=== PATIENT | male | born 2000 | race Caucasian/White ===

== ENCOUNTER 2023-06-02 20:32 | Emergency (ER) | payer OTHER ==
[2023-06-02] MEDS ORDERED: Metoprolol Tartrate 5 MG (5 mL) VIAL ONE (20:46)
[2023-06-02 20:52] LABS: #Monocytes 0.7 10x3/uL (0.0-1.1); #Neutrophils 4.3 10x3/uL (1.5-8.4); %Basophils 0.4 % (0.0-2.0); %Eosinophils 0.1 % (0.0-6.0); %Lymphocytes 33.4 % (18.0-47.0); %Monocytes 9.1 % (0.0-10.0); %Neutrophils 56.7 % (40.0-75.0); Hematocrit 40.5 % (38.8-50.0); Hemoglobin 14.8 g/dL (13.5-17.5); Mean Corpuscular HGB CONC 36.5 g/dL (32.0-36.0); Mean Corpuscular Hemoglobin 34.2 pg (27.0-33.0); Mean Corpuscular Volume 93.5 fl (81.2-95.1); Mean Platelet Volume 10.3 fl (7.4-10.4); Platelet Count 194 10x3/uL (150-450); RBC Distribution Width 12.5 % (11.5-14.5); Red Blood Cell (RBC) Count 4.33 10x6/uL (4.32-5.72); White Blood Cell (WBC) Count 7.6 10x3/uL (3.5-10.5)
[2023-06-02 21:04] LABS: Acetaminophen Less than 10 mcg/mL (10.0-30.0); Alcohol Less than 10.0 mg/dL (Less than 10); Magnesium 1.4 mg/dL (1.6-2.6); Salicylate Less than 8.0 mg/dL (15.0-30.0)
[2023-06-02 21:05] LABS: ALT (SGPT) 28 U/L (8-55); AST (SGOT) 37 U/L (5-34); Albumin 4.6 g/dL (3.5-5.0); Alkaline Phosphatase 56 U/L (40-110); Anion Gap 14 mmol/L (10-20); BUN (Urea Nitrogen) 13 mg/dL (8.9-20.6); Bilirubin, Total 0.8 mg/dL (0.2-1.2); Calc. Creatinine Clearance 0 mL/min (70-130); Calcium 8.6 mg/dL (7.8-10.44); Carbon Dioxide 21 mmol/L (22-29); Chloride 106 mmol/L (98-107); Estimated GFR 89; Glucose 97 mg/dL (70-105); Protein, Total 6.6 g/dL (6.0-8.3); Sodium 138 mmol/L (136-145)
== END 2023-06-02 21:20 | disposition home or self-care (01) ==
LOC: CSHERS 20:32
DX: R00.0 Tachycardia, unspecified (principal)
CPT/HCPCS: 80053; 80307; 83735; 85025; 96374